=== PATIENT | female | born 1995 | race Caucasian/White ===

== ENCOUNTER 2016-08-03 12:01 | Emergency (ER) | payer OTHER ==
[2016-08-03 12:07] VITALS: TEMP 98.1
[2016-08-03] MEDS ORDERED: IPRATROPIUM/ALBUTEROL 3 ML DEYVIAL IH ONE ×2 (12:18→13:31)
[2016-08-03] MEDS ORDERED: predniSONE 20 MG TAB PO ONE (12:27)
--- NOTE | 2016-08-03 12:27 | EDPHY ---
H & P Stated Complaint: hx asthma/changing meds feels sob Time Seen by Provider: 08/03/16 12:19 HPI/ROS: CHIEF COMPLAINT: Dyspnea, cough HISTORY OF PRESENT ILLNESS: The patient is a 20-year-old female with a history of asthma comes to the emergency department complaining of cough and shortness of breath increasing over the last week. She states that she started a new inhaled steroid few weeks ago with her doctor in [place] and was told to try and use her albuterol sparingly. She has not used any today. She does not have a fever. She denies chest pain. No abdominal pain. REVIEW OF SYSTEMS: Constitutional: denies: chills, fever, recent illness, recent injury EENTM: denies: blurred vision, double vision, nose congestion Respiratory: See HPI Cardiac: denies: chest pain, irregular heart rate, lightheadedness, palpitations Gastrointestinal/Abdominal: denies: abdominal pain, diarrhea, nausea, vomiting, blood streaked stools Genitourinary: denies: dysuria, frequency, hematuria, pain Musculoskeletal: denies: joint pain, muscle pain Skin: denies: lesions, rash, jaundice, bruising Neurological: denies: headache, numbness, paresthesia, tingling, dizziness, weakness Hematologic/Lymphatic: denies: blood clots, easy bleeding, easy bruising Immunologic/allergic: denies: HIV/AIDS, transplant EXAM: GENERAL: Well-appearing, well-nourished and in no acute distress. HEAD: Atraumatic, normocephalic. EYES: Pupils equal round and reactive to light, extraocular movements intact, sclera anicteric, conjunctiva are normal. ENT: TMs normal, nares patent, oropharynx clear without exudates. Moist mucous membranes. NECK: Normal range of motion, supple without lymphadenopathy or JVD. LUNGS: Breath sounds clear to auscultation bilaterally and equal. No wheezes rales or rhonchi. HEART: Regular rate and rhythm without murmurs, rubs or gallops. ABDOMEN: Soft, nontender, normoactive bowel sounds. No guarding, no rebound. No masses appreciated. BACK: No CVA tenderness, no spinal tenderness, step-offs or deformities EXTREMITIES: Normal range of motion, no pitting or edema. No clubbing or cyanosis. NEUROLOGICAL: Cranial nerves II through XII grossly intact. Normal speech, normal gait. 5/5 strength, normal movement in all extremities, normal sensation PSYCH: Normal mood, normal affect. SKIN: Warm, dry, normal turgor, no visible rashes or lesions. Source: Patient Exam Limitations: No limitations - Personal History LMP (Females 10-55): 22-28 Days Ago Current Tetanus/Diphtheria Vaccine: Yes Tetanus Vaccine Date: < 10 years - Medical/Surgical History Hx Asthma: Yes Hx Chronic Respiratory Disease: No Hx Diabetes: No Hx Cardiac Disease: No Hx Renal Disease: No Hx Cirrhosis: No Hx Alcoholism: No Hx HIV/AIDS: No Hx Splenectomy or Spleen Trauma: No Other PMH: HERNIA REPAIR, IBS, UPPER GI PROBLEMS, ASTHMA, ANXIETY, ADHD - Social History Smoking Status: Never smoked Alcohol Use: Sober Drug Use: None Constitutional: Initial Vital Signs Temperature (C) 36.7 C 08/03/16 12:04 Heart Rate 84 08/03/16 12:04 Respiratory Rate 20 08/03/16 12:04 Blood Pressure 139/100 H 08/03/16 12:04 O2 Sat (%) 95 08/03/16 12:04 O2 Delivery Mode Room Air O2 (L/minute) 2 Allergies/Adverse Reactions: No Known Allergies Allergy (Verified 08/03/16 12:03) Home Medications: Medication Instructions Recorded Desog-E.estradiol/E.estradiol 1 each PO DAILY 03/13/14 [Azurette 28 Day Tablet] Dextroamphetamine/Amphetamine 15 mg PO DAILY 03/13/14 [ADDERALL 15 MG TABLET] Albuterol 08/03/16 Albuterol [Proventil Inhaler] 1 - 2 puffs IH Q4H #1 mdi 08/03/16 Breo Ellipta 100-25 Mcg INH 08/03/16 Zoloft 100mg (*) 08/03/16 predniSONE 60 mg PO DAILY #15 tab 08/03/16 Medical Decision Making - Diagnostics Imaging: Imaging Impressions Chest X-Ray 08/03/16 12:19 Impression: No definite pneumonia. X-ray: chest x-ray was obtained. I viewed the images myself on the PACS system. My interpretation of the images is: negative for acute disease . The radiologist interpretation is pending. ED Course/Re-evaluation: 1:50 p.m. the patient is feeling much better after a DuoNeb. I will treat her with a course of steroids. Her x-ray is reassuring. She is happy with this plan and declines further workup or testing at this time. Differential Diagnosis: Partial list of the Differential diagnosis considered include but were not limited to; bronchitis, asthma exacerbation and although unlikely based on the history and physical exam, I also considered pneumonia, pneumothorax, PE, acute coronary disease. I discussed these differential diagnoses and the plan with the patient as well as the usual and expected course. The patient understands that the diagnosis is provisional and that in medicine we are not always correct and that further workup is often warranted. Usual and customary warnings were given. All of the patient's questions were answered. The patient was instructed to return to the emergency department should the symptoms at all worsen or return, otherwise to followup with the physician as we discussed. - Data Points Medications Given: Discontinued Medications Albuterol/Ipratropium (Duoneb) 3 ml IH EDNOW ONE Stop: 08/03/16 12:19 Last Admin: 08/03/16 12:22 Dose: 3 ml Albuterol/Ipratropium (Duoneb) 3 ml IH EDNOW ONE Stop: 08/03/16 13:32 Last Admin: 08/03/16 13:32 Dose: 3 ml Prednisone (Prednisone) 60 mg PO EDNOW ONE Stop: 08/03/16 12:28 Last Admin: 08/03/16 13:00 Dose: 60 mg Departure - Departure Disposition: Home, Routine, Self-Care Clinical Impression: Exacerbation of asthma Condition: Fair Instructions: Asthma (ED) Referrals: KACI CAMARGO [Primary Care Provider] - As per Instructions Stand Alone Forms: School Excuse, Work Excuse Prescriptions: Albuterol [Proventil Inhaler] 1 - 2 puffs IH Q4H #1 mdi predniSONE 60 mg PO DAILY #15 tab
[2016-08-03] MEDS ORDERED: IPRATROPIUM/ALBUTEROL 3 ML DEYVIAL ONE (13:29)
[2016-08-03] MEDS ORDERED: ONDANSETRON DISINTEGRATING 4 MG TAB ONE (14:04)
[2016-08-03 14:23] VITALS: BP 110/68; PULSE 103; RESP 18; O2SAT 100
== END 2016-08-03 14:22 | disposition home or self-care (01) ==
DX: J45.901 Unspecified asthma with (acute) exacerbation (principal)

== ENCOUNTER 2016-09-01 21:35 | Inpatient (IN) | payer OTHER ==
[2016-09-01] MEDS ORDERED: IPRATROPIUM/ALBUTEROL 3 ML DEYVIAL ONE (21:46)
--- NOTE | 2016-09-01 21:54 | EDPHY ---
H & P Stated Complaint: ASTHMA COUGH ATTACKS, GREEN PUSS LIKE STUFF HPI/ROS: HPI CHIEF COMPLAINT: Cough, shortness of breath, asthma HISTORY OF PRESENT ILLNESS: This patient very pleasant 20-year-old female significant past medical history for asthma, IBS, presents to the emergency room with shortness of breath, wheezing and coughing. Patient reports to me she has had progressively worsening coughing with productive sputum sometimes green, yellow, with blood streaks at times, for 1.5 months. 2 days ago she did go to [facility] and was seen and evaluated she was started on a Z -Jus. She states over the past 48 hours her cough has gotten worse. She does tell me earlier in the month she did see her primary care doctor who manages her asthma and was given a new inhaler. She tells me the past 48 hours she has been using her home nebulizer every 4 hours and albuterol inhaler very frequently. She denies chest pain. She does report pleuritic pain when she takes deep breath in. Denies history of PE or cardiac disease. Does report that she does take oral control. Past Medical History: IBS, asthma Past Surgical History: No recent surgical history Social History: [employer] student, denies drugs, alcohol, daily tobacco use Family History: Noncontributory ROS REVIEW OF SYSTEMS: A comprehensive 10 point review of systems is otherwise negative aside from elements mentioned in the history of present illness. Exam Constitutional triage nursing summary reviewed, vital signs reviewed, awake/ alert. Noted to be tachycardic. Eyes normal conjunctivae and sclera, EOMI, PERRLA. HENT normal inspection, atraumatic, moist mucus membranes, no epistaxis, neck supple/ no meningismus, no raccoon eyes. Respiratory clear to auscultation bilaterally, normal breath sounds, no respiratory distress, no wheezing. Cardiovascular tachycardia, regular rhythm, no murmur, no edema, distal pulses normal. Gastrointestinal soft, non-tender, no rebound, no guarding, normal bowel sounds, no distension, no pulsatile mass. Genitourinary no CVA tenderness. Musculoskeletal no midline vertebral tenderness, full range of motion, no calf swelling, no tenderness of extremities, no meningismus, good pulses, neurovascularly intact. Skin pink, warm, & dry, no rash, skin atraumatic. Neurologic awake, alert and oriented x 3, AAOx3, moves all 4 extremities equally, motor intact, sensory intact, CN II-XII intact, normal cerebellar, normal vision, normal speech. Psychiatric normal mood/affect. Heme/Lymph/Immune no lymphadenopathy. Differential Diagnosis: Includes but is not limited to in a particular order, acute asthma attack, bronchospasm, bronchitis, pneumonia, viral pneumonia, bacterial pneumonia, pulmonary embolism Medical Decision Making: Plan for this patient IV establishment, DuoNeb breathing treatment, IV fluid bolus, IV Solu-Medrol, two view chest x-ray, blood work including D-dimer. EKG. Re-evaluation. Re-evaluation: 2320: Re-evaluation at this time this patient does feel much better after DuoNeb breathing treatment. Receiving IV fluids at this time received IV Solu- Medrol 125 mg. Chest x-ray reviewed shows no acute infiltrate. It is noted the patient had positive D-dimer and tachycardia takes oral control. Due to positive D-dimer tachycardia recommend CT angiogram to rule out pulmonary embolism. CT scan of the angiogram chest The results of the study are negative for acute pulmonary embolism no pneumothorax no pneumonia unremarkable CT angiogram chest. The study was read by Dr. Carrasco I viewed the images myself on the PACS system. EKG interpretation by me on record in [employer] system. Impression time of EKG 06/20/1934, sinus tachycardia rate of 112 no acute ischemic changes. 1215AM: Re-evaluation at this time after multiple DuoNeb breathing treatments patient still has persistent cough. Tells me that the main area of concern is tightness in her throat and throat pain. Did review her CT angiogram shows no pulmonary embolism also reviewed soft tissue neck x-ray that is negative for foreign body or prevertebral space thickening. However due to the ongoing cough with no significant improvement in the emergency room low-grade fever, tachycardia, proceed with CT scan IV contrast of the neck soft tissue to make sure there is not a retropharyngeal abscess or epiglottitis. Will pull lactic and blood cultures. 0133AM: Patient CT soft tissue neck is been reviewed there does show bilateral apical pulmonary infiltrates. This was not seen on the CT angiogram chest. Due to this with fever, white count and infiltrates patient be admitted to the hospital for bilateral apical pneumonia. IV Rocephin IV azithromycin as been ordered. Blood cultures ordered. Patient hemodynamically stable patient be admitted to Dr. Reeves Source: Patient - Personal History LMP (Females 10-55): 22-28 Days Ago Current Tetanus/Diphtheria Vaccine: Yes Current Tetanus Diphtheria and Acellular Pertussis (TDAP): Yes Tetanus Vaccine Date: < 10 years - Medical/Surgical History Hx Asthma: Yes Hx Chronic Respiratory Disease: No Hx Diabetes: No Hx Cardiac Disease: No Hx Renal Disease: No Hx Cirrhosis: No Hx Alcoholism: No Hx HIV/AIDS: No Hx Splenectomy or Spleen Trauma: No Other PMH: HERNIA REPAIR, IBS, UPPER GI PROBLEMS, ASTHMA, ANXIETY, ADHD - Social History Smoking Status: Never smoked Constitutional: Initial Vital Signs Temperature (C) 37.3 C 09/01/16 21:37 Heart Rate 118 H 09/01/16 21:37 Respiratory Rate 20 09/01/16 21:37 Blood Pressure 129/72 H 09/01/16 21:37 O2 Sat (%) 92 09/01/16 21:37 O2 Delivery Mode Nasal Cannula O2 (L/minute) 2 Allergies/Adverse Reactions: No Known Allergies Allergy (Verified 09/01/16 21:41) Home Medications: Medication Instructions Recorded Desog-E.estradiol/E.estradiol 1 each PO DAILY 03/13/14 [Azurette 28 Day Tablet] Dextroamphetamine/Amphetamine 15 mg PO DAILY 03/13/14 [ADDERALL 15 MG TABLET] Albuterol 08/03/16 Albuterol [Proventil Inhaler] 1 - 2 puffs IH Q4H #1 mdi 08/03/16 Breo Ellipta 100-25 Mcg INH 08/03/16 Zoloft 100mg (*) 08/03/16 Montelukast Sodium [Singulair 10 10 mg PO DAILY@1800 09/01/16 mg (*)] Medical Decision Making - Diagnostics Imaging Results: Imaging Impressions Chest X-Ray 09/01/16 22:09 Impression: Nothing acute. Chest/Thorax CTA 09/01/16 22:53 Impression: 1. No pulmonary embolism. 2. Clear lungs. Findings and recommendations discussed with Charles Morel MD at 2316 hour, . Final report concurs with initial preliminary interpretation. Soft Tissue Neck X-Ray 09/01/16 23:33 Impression: No radiopaque soft tissue foreign body or retropharyngeal process. - Data Points Laboratory Results: Laboratory Results 09/01/16 21:55 09/01/16 21:55 09/02/16 09/02/16 09/01/16 01:15 00:30 21:55 WBC RBC Hgb Hct MCV MCH MCHC RDW Plt Count MPV Neut % (Auto) Lymph % (Auto) [place] % (Auto) Eos % (Auto) Baso % (Auto) Nucleat RBC Rel Count Absolute Neuts (auto) Absolute Lymphs (auto) Absolute Monos (auto) Absolute Eos (auto) Absolute Basos (auto) Absolute Nucleated RBC Immature Gran % Immature Gran # D-Dimer VBG Lactic Acid 2.0 mmol/L mmol/L (0.7-2.1) Sodium Potassium Chloride Carbon Dioxide Anion Gap BUN Creatinine Estimated GFR Glucose Calcium Troponin I NT-Pro-B Natriuret Pep Beta HCG, Qual B. pertussis IgG Ab Pending B. pertussis IgA Ab Pending Influenza Typ A,B (DFA) Pending 09/01/16 09/01/16 09/01/16 21:55 21:55 21:55 WBC RBC Hgb Hct MCV MCH MCHC RDW Plt Count MPV Neut % (Auto) Lymph % (Auto) [place] % (Auto) Eos % (Auto) Baso % (Auto) Nucleat RBC Rel Count Absolute Neuts (auto) Absolute Lymphs (auto) Absolute Monos (auto) Absolute Eos (auto) Absolute Basos (auto) Absolute Nucleated RBC Immature Gran % Immature Gran # D-Dimer 0.79 ug/mLFEU H ug/mLFEU (0.00-0.50) VBG Lactic Acid Sodium 138 mEq/L mEq/L (134-144) Potassium 3.6 mEq/L mEq/L (3.5-5.2) Chloride 103 mEq/L mEq/L (97-110) Carbon Dioxide 20 mEq/l L mEq/l (22-31) Anion Gap 15 mEq/L mEq/L (8-16) BUN 4 mg/dL L mg/dL (7-23) Creatinine 0.6 mg/dL mg/dL (0.6-1.0) Estimated GFR > 60 Glucose 103 mg/dL H mg/dL (70-100) Calcium 9.0 mg/dL mg/dL (8.5-10.4) Troponin I < 0.012 ng/mL ng/mL (0-0.034) NT-Pro-B Natriuret Pep 342 pg/mL H pg/mL (0-125) Beta HCG, Qual NEGATIVE B. pertussis IgG Ab B. pertussis IgA Ab Influenza Typ A,B (DFA) 09/01/16 21:55 WBC 17.60 10^3/uL H 10^3/uL (3.80-9.50) RBC 3.79 10^6/uL L 10^6/uL (4.18-5.33) Hgb 12.1 g/dL L g/dL (12.6-16.3) Hct 35.5 % L % (38.0-47.0) MCV 93.7 fL fL (81.5-99.8) MCH 31.9 pg pg (27.9-34.1) MCHC 34.1 g/dL g/dL (32.4-36.7) RDW 14.3 % % (11.5-15.2) Plt Count 278 10^3/uL 10^3/uL (150-400) MPV 9.2 fL fL (8.7-11.7) Neut % (Auto) 76.1 % H % (39.3-74.2) Lymph % (Auto) 15.3 % % (15.0-45.0) [place] % (Auto) 6.9 % % (4.5-13.0) Eos % (Auto) 0.9 % % (0.6-7.6) Baso % (Auto) 0.3 % % (0.3-1.7) Nucleat RBC Rel Count 0.0 % % (0.0-0.2) Absolute Neuts (auto) 13.40 10^3/uL H 10^3/uL (1.70-6.50) Absolute Lymphs (auto) 2.69 10^3/uL 10^3/uL (1.00-3.00) Absolute Monos (auto) 1.21 10^3/uL H 10^3/uL (0.30-0.80) Absolute Eos (auto) 0.16 10^3/uL 10^3/uL (0.03-0.40) Absolute Basos (auto) 0.05 10^3/uL 10^3/uL (0.02-0.10) Absolute Nucleated RBC 0.00 10^3/uL 10^3/uL (0-0.01) Immature Gran % 0.5 % % (0.0-1.1) Immature Gran # 0.09 10^3/uL 10^3/uL (0.00-0.10) D-Dimer VBG Lactic Acid Sodium Potassium Chloride Carbon Dioxide Anion Gap BUN Creatinine Estimated GFR Glucose Calcium Troponin I NT-Pro-B Natriuret Pep Beta HCG, Qual B. pertussis IgG Ab B. pertussis IgA Ab Influenza Typ A,B (DFA) Medications Given: Discontinued Medications Al Hydroxide/Mg Hydroxide (Maalox Susp) 30 ml PO ONCE ONE Stop: 09/01/16 23:34 Last Admin: 09/01/16 23:40 Dose: 30 ml Albuterol/Ipratropium (Duoneb) 3 ml IH EDNOW ONE Stop: 09/01/16 22:00 Last Admin: 09/01/16 22:10 Dose: 3 ml Albuterol/Ipratropium (Duoneb) 3 ml IH EDNOW ONE Stop: 09/01/16 22:10 Last Admin: 09/01/16 22:39 Dose: 3 ml Hyoscyamine Sulfate (Levsin, Hyomax-Sl) 0.25 mg PO ONCE ONE Stop: 09/01/16 23:34 Last Admin: 09/01/16 23:40 Dose: 0.25 mg Sodium Chloride (Ns) 1,000 mls @ 0 mls/hr IV ONCE ONE PRN Reason: Wide Open Stop: 09/01/16 22:10 Last Admin: 09/01/16 22:10 Dose: 1,000 mls Lidocaine (Lidocaine 2% Viscous) 15 ml PO ONCE ONE Stop: 09/01/16 23:34 Last Admin: 09/01/16 23:40 Dose: 15 ml Methylprednisolone Sodium Succinate (Solu-Medrol) 125 mg IVP EDNOW ONE Stop: 09/01/16 22:10 Last Admin: 09/01/16 22:10 Dose: 125 mg Oxycodone/Acetaminophen (Percocet 5/325) 1 tab PO EDNOW ONE Stop: 09/01/16 22:11 Last Admin: 09/01/16 22:22 Dose: 1 tab Departure - Departure Disposition: [facility] Clinical Impression: Pneumonia Qualifiers: Pneumonia type: due to unspecified organism Laterality: bilateral Lung location : upper lobe of lung Qualified Code(s): J18.9 - Pneumonia, unspecified organism Condition: Fair Referrals: NOT,SURE [Other] - As per Instructions
[2016-09-01] MEDS ORDERED: IPRATROPIUM/ALBUTEROL 3 ML DEYVIAL IH ONE ×2 (21:59→22:09)
[2016-09-01] MEDS ORDERED: NS 1,000 ML IV ONE (22:09)
[2016-09-01] MEDS ORDERED: methylPREDNISolone SOD SUCC 125 MG/2 ML VIAL IVP ONE (22:09)
[2016-09-01] MEDS ORDERED: OXYCODONE/APAP 5/325 TAB PO ONE (22:10)
[2016-09-01] MEDS ORDERED: ONDANSETRON 4 MG/2 ML VIAL ONE (22:15)
[2016-09-01 22:19] LABS: % IMMATURE GRANULYOCYTES 0.5 % (0.0-1.1); ABSOLUTE IMMATURE GRANULOCYTES 0.09 10^3/uL (0.00-0.10); ADD DIFF? NO; ADD MORPH? NO; ADD SCAN? NO; ATYPICAL LYMPHOCYTE FLAG 0 (0-99); FRAGMENT RBC FLAG 0 (0-99); HEMATOCRIT 35.5 % (38.0-47.0); HEMOGLOBIN 12.1 g/dL (12.6-16.3); LEFT SHIFT FLG 50 (0-99); LIPEMIA HEMOLYSIS FLAG 90 (0-99); MEAN CELL HEMOGLOBIN 31.9 pg (27.9-34.1); MEAN CELL HEMOGLOBIN CONCENTR. 34.1 g/dL (32.4-36.7); MEAN CELL VOLUME 93.7 fL (81.5-99.8); MEAN PLATELET VOLUME 9.2 fL (8.7-11.7); PLATELET CLUMPS FLAG 10 (0-99); PLATELET COUNT 278 10^3/uL (150-400); RED BLOOD CELL COUNT 3.79 10^6/uL (4.18-5.33); RED CELL DISTRIBUTION WIDTH 14.3 % (11.5-15.2)
[2016-09-01 22:25] LABS: ANION GAP 15 mEq/L (8-16); CARBON DIOXIDE 20 mEq/l (22-31); CHLORIDE 103 mEq/L (97-110); CREATININE 0.6 mg/dL (0.6-1.0); GLOMERULAR FILTRATION RATE > 60; GLUCOSE 103 mg/dL (70-100); POTASSIUM 3.6 mEq/L (3.5-5.2); SODIUM 138 mEq/L (134-144)
[2016-09-01 22:36] LABS: TROPONIN I < 0.012 ng/mL (0-0.034)
--- NOTE | 2016-09-01 22:37 | CPEKG ---
Heart Rate: 112 RR Interval: 536 P-R Interval: 176 QRSD Interval: 92 QT Interval: 336 QTC Interval: 459 P [place]: 62 QRS [place]: 47 T Wave [place]: 42 EKG Severity - OTHERWISE NORMAL ECG - EKG Impression: SINUS TACHYCARDIA Electronically Signed By: Charles Morel 02-Sep-2016 06:41:08
[2016-09-01] MEDS ORDERED: IOPAMIDOL (ISOVUE 370) 100 ML BTL IV ONE (22:58)
[2016-09-01] MEDS ORDERED: MAG HYDROX/AL HYDROX/SIMETH 30 ML UDCUP PO ONE (23:33)
[2016-09-01] MEDS ORDERED: HYOSCYAMINE SULFATE 0.125 MG TAB PO ONE (23:33)
[2016-09-01] MEDS ORDERED: LIDOCAINE 2% VISCOUS 15 ML UDCUP PO ONE (23:33)
[2016-09-02] MEDS ORDERED: AZITHROMYCIN IV 500 MG in D5W 250 ML IV ONE (00:37)
[2016-09-02] MEDS ORDERED: IOPAMIDOL (ISOVUE-300) 100 ML BTL IV ONE (00:41)
[2016-09-02] MEDS ORDERED: ALBUTEROL 3 ML DEYVIAL IH PRN (05:44)
--- NOTE | 2016-09-02 05:48 | PDGENHP ---
History and Physical - Chief Complaint cough, shortness of breath - History of Present Illness Patient is a 20 year old female with a history of moderate intermittent asthma, IBS presents to the ED with complaint of shortness of breath and persistent cough. Patient states that about 4-6 weeks ago she developed what she that was a viral URI, with chest congestion, cough and upper airway congestion, which then triggered a mild asthma exacerbation. She was evaluated in the [facility] ED in early July for this, was given a course of prednisone and an albuterol prescription. She reports she initially felt better, but her cough has persisted since that time. And then about 2-4 days ago, her respiratory symptoms again acutely worsened. She developed subjective fever and chills, cough became more productive and became associated with increased wheezing and shortness of breath and sore throat. She went to the [facility] clinic on campus and was prescribed a Z-pack two days ago. Her symptoms continued to worsen, so she returned to the ED for further evaluation. Patient denies any recent travel outside the country in the past 6 months. Also denies any obvious sick contacts. She does report significant night sweats, since her symptoms started a month ago. Denies any abdominal pain, nausea, vomiting or diarrhea. She is on OCP. On presentation to the ED, patient had a low grade temperature, was tachycardic and normotensive, saturating well on room air. Labs revealed a significant leukocytosis, lactic acid 2, normal bmp. CXR was unrevealing and d-dimer was positive, so CT chest and neck were obtained. CT was negative for pulmonary embolism, did show bilateral apical consolidations concerning for atypical pneumonia. She was cultured and initiated on antibiotics. History Information - Allergies/Home Medication List Allergies/Adverse Reactions: No Known Allergies Allergy (Verified 09/01/16 21:41) Home Medications: Desog-E.estradiol/E.estradiol [Azurette 28 Day Tablet] 1 each PO DAILY 03/13/14 [Last Taken Unknown] Dextroamphetamine/Amphetamine [ADDERALL 15 MG TABLET] 15 mg PO DAILY 03/13/14 [ Last Taken Unknown] Albuterol 08/03/16 [Last Taken Unknown] Breo Ellipta 100-25 Mcg INH 08/03/16 [Last Taken Unknown] Zoloft 100mg (*) 08/03/16 [Last Taken Unknown] Montelukast Sodium [Singulair 10 mg (*)] 10 mg PO DAILY@1800 09/01/16 [Last Taken Unknown] I have personally reviewed and updated: family history, medical history, social history, surgical history - Past Medical History Additional medical history: Asthma: moderate, intermittent; never hospitalized or intubated. IBS - Surgical History Additional surgical history: inguinal hernia repair - Social History Smoking Status: Never smoked Alcohol Use: Occasionally Drug Use: None Additional social history: Patient is a senior at , studying physiology. From [place]. Review of Systems ROS: 10pt was reviewed & negative except for what was stated in HPI & below Physical Exam Temp Pulse Resp BP Pulse Ox 36.6 C 95 18 127/84 H 97 09/02/16 02:51 09/02/16 02:51 09/02/16 02:51 09/02/16 02:51 09/02/16 02:51 O2 (L/minute) 2 Constitutional: no apparent distress, appears nourished, not in pain Eyes: PERRL, anicteric sclera, EOMI Ears, Nose, Mouth, Throat: moist mucous membranes, hearing normal, ears appear normal, no oral mucosal ulcers Cardiovascular: regular rate and rhythym, no murmur, rub, or gallop, pulses symmetric bilaterally, tachycardia, No JVD, No edema Peripheral Pulses: 2+: dorsalis-pedis (R), dorsalis-pedis (L) Respiratory: no respiratory distress, no rales or rhonchi, clear to auscultation , No expiratory wheeze Gastrointestinal: normoactive bowel sounds, soft, non-tender abdomen, no palpable masses Genitourinary: no bladder fullness, no bladder tenderness Skin: warm, normal color, no rashes or abrasions, no fluctuance, no induration, No mottled Musculoskeletal: full muscle strength, no muscle tenderness, normal joint ROM, no joint effusions Neurologic: AAOx3, sensation intact bilaterally, CN II-XII Intact, No weakness, No numbness Psychiatric: interacting appropriately, not anxious, not encephalopathic, thought process linear Lab Data & Imaging Review 09/01/16 21:55 09/01/16 21:55 WBC 17.60 10^3/uL (3.80-9.50) H 09/01/16 21:55 RBC 3.79 10^6/uL (4.18-5.33) L 09/01/16 21:55 Hgb 12.1 g/dL (12.6-16.3) L 09/01/16 21:55 Hct 35.5 % (38.0-47.0) L 09/01/16 21:55 MCV 93.7 fL (81.5-99.8) 09/01/16 21:55 MCH 31.9 pg (27.9-34.1) 09/01/16 21:55 MCHC 34.1 g/dL (32.4-36.7) 09/01/16 21:55 RDW 14.3 % (11.5-15.2) 09/01/16 21:55 Plt Count 278 10^3/uL (150-400) 09/01/16 21:55 MPV 9.2 fL (8.7-11.7) 09/01/16 21:55 Neut % (Auto) 76.1 % (39.3-74.2) H 09/01/16 21:55 Lymph % (Auto) 15.3 % (15.0-45.0) 09/01/16 21:55 [place] % (Auto) 6.9 % (4.5-13.0) 09/01/16 21:55 Eos % (Auto) 0.9 % (0.6-7.6) 09/01/16 21:55 Baso % (Auto) 0.3 % (0.3-1.7) 09/01/16 21:55 Nucleat RBC Rel Count 0.0 % (0.0-0.2) 09/01/16 21:55 Absolute Neuts (auto) 13.40 10^3/uL (1.70-6.50) H 09/01/16 21:55 Absolute Lymphs (auto) 2.69 10^3/uL (1.00-3.00) 09/01/16 21:55 Absolute Monos (auto) 1.21 10^3/uL (0.30-0.80) H 09/01/16 21:55 Absolute Eos (auto) 0.16 10^3/uL (0.03-0.40) 09/01/16 21:55 Absolute Basos (auto) 0.05 10^3/uL (0.02-0.10) 09/01/16 21:55 Absolute Nucleated RBC 0.00 10^3/uL (0-0.01) 09/01/16 21:55 Immature Gran % 0.5 % (0.0-1.1) 09/01/16 21:55 Immature Gran # 0.09 10^3/uL (0.00-0.10) 09/01/16 21:55 D-Dimer 0.79 ug/mLFEU (0.00-0.50) H 09/01/16 21:55 VBG Lactic Acid 2.0 mmol/L (0.7-2.1) 09/02/16 00:30 Sodium 138 mEq/L (134-144) 09/01/16 21:55 Potassium 3.6 mEq/L (3.5-5.2) 09/01/16 21:55 Chloride 103 mEq/L (97-110) 09/01/16 21:55 Carbon Dioxide 20 mEq/l (22-31) L 09/01/16 21:55 Anion Gap 15 mEq/L (8-16) 09/01/16 21:55 BUN 4 mg/dL (7-23) L 09/01/16 21:55 Creatinine 0.6 mg/dL (0.6-1.0) 09/01/16 21:55 Estimated GFR > 60 09/01/16 21:55 Glucose 103 mg/dL (70-100) H 09/01/16 21:55 Calcium 9.0 mg/dL (8.5-10.4) 09/01/16 21:55 Troponin I < 0.012 ng/mL (0-0.034) 09/01/16 21:55 NT-Pro-B Natriuret Pep 342 pg/mL (0-125) H 09/01/16 21:55 Beta HCG, Qual NEGATIVE 09/01/16 21:55 Influenza Typ A,B (DFA) NEGATIVE FOR FLU (NEGATIVE) 09/02/16 01:15 Visualized and Interpreted Chest x-ray results: Yes Chest X-Ray results: no infiltrate Visualized and Interpreted imaging results: Yes Interpretation: CT neck/chest: no pulmonary emboli, bilateral apical infiltrates ; no soft tissue neck pathology Visualized and Interpreted EKG results: Yes EKG additional interpertation: sinus tachycardia Assessment & Plan Assessment: Patient is a 20 year old female with asthma who presents to the ED with complaint of 4-5 weeks of persistent cough/URI type symptoms that acutely worsened about 4 days ago. ED work up reveals bilateral apical infiltrates appear consistent with an atypical pneumonia. Plan: # sepsis secondary to presumed atypical pneumonia On presentation patient is tachycardic, tachypneic, with leukocytosis. UA and initial CXR were unremarkable, but CT of the chest has revealed bilateral apical infiltrates that appear consistent with pneumonia. Apical location is unusual, as is her prolonged course of symptoms with night sweats, so will also check AFBs. She was initiated on azithromycin 2 days prior to presentation, but symptoms have continued to worsen. - f/u blood cultures, pertussis ab - check sputum cultures, viral respiratory panel - cont ceftriaxone/azithromycin daily - NS @ 100 cc/hr - supplemental O2 prn # acute respiratory failure due to acute asthma exacerbation Patient presented with mild diffuse wheezing, in addition to cough. Wheezing improved with IV steroids, nebs. Will cont po prednisone, alb neb prn. - prednisone 40 mg daily - albuterol prn # IBS Stable, no complaints at this time. # dispo: admit to observation # gen: regular diet DVT ppx: low risk Full code
[2016-09-02] MEDS ORDERED: KETOROLAC 30 MG/1 ML SDV IVP PRN (05:52)
[2016-09-02] MEDS ORDERED: ONDANSETRON DISINTEGRATING 4 MG TAB PO PRN (06:14)
[2016-09-02] MEDS ORDERED: ACETAMINOPHEN 325 MG TAB PO PRN (06:14)
[2016-09-02] MEDS ORDERED: ONDANSETRON 4 MG/2 ML VIAL IVP PRN (06:14)
[2016-09-02] MEDS ORDERED: NS 1,000 ML IV SCH (06:15)
[2016-09-02] MEDS: BENZONATATE 100 MG CAP PO PRN ×3 (06:20→19:04)
[2016-09-02 07:31] LABS: % IMMATURE GRANULYOCYTES 0.5 % (0.0-1.1); ABSOLUTE IMMATURE GRANULOCYTES 0.08 10^3/uL (0.00-0.10); ADD DIFF? NO; ADD MORPH? NO; ADD SCAN? NO; ATYPICAL LYMPHOCYTE FLAG 0 (0-99); FRAGMENT RBC FLAG 0 (0-99); HEMATOCRIT 35.5 % (38.0-47.0); LEFT SHIFT FLG 30 (0-99); LIPEMIA HEMOLYSIS FLAG 90 (0-99); MEAN CELL HEMOGLOBIN 31.7 pg (27.9-34.1); MEAN CELL HEMOGLOBIN CONCENTR. 33.8 g/dL (32.4-36.7); MEAN CELL VOLUME 93.7 fL (81.5-99.8); MEAN PLATELET VOLUME 9.1 fL (8.7-11.7); PLATELET CLUMPS FLAG 0 (0-99); PLATELET COUNT 248 10^3/uL (150-400); RED BLOOD CELL COUNT 3.79 10^6/uL (4.18-5.33); RED CELL DISTRIBUTION WIDTH 14.1 % (11.5-15.2)
[2016-09-02 07:49] LABS: ANION GAP 9 mEq/L (8-16); CALCIUM 9.1 mg/dL (8.5-10.4); CARBON DIOXIDE 22 mEq/l (22-31); CHLORIDE 103 mEq/L (97-110); CREATININE 0.6 mg/dL (0.6-1.0); GLOMERULAR FILTRATION RATE > 60; GLUCOSE 166 mg/dL (70-100); POTASSIUM 4.8 mEq/L (3.5-5.2); SODIUM 134 mEq/L (134-144)
[2016-09-02] MEDS: predniSONE 20 MG TAB PO SCH (08:35)
[2016-09-02] MEDS: AZITHROMYCIN IV 500 MG in D5W 250 ML IV SCH (09:45)
[2016-09-02] MEDS ORDERED: ALPRAZolam 1 MG TAB PO PRN (09:47)
[2016-09-02] MEDS: SERTRALINE HCL 50 MG TAB PO SCH (10:20)
[2016-09-02] MEDS: guaiFENesin/CODEINE PHOS 10 ML UDCUP PO PRN ×3 (10:20→22:33)
[2016-09-02] MEDS: ADDERALL 20 MG TAB PO SCH ×2 (11:19→14:52)
--- NOTE | 2016-09-02 15:17 | HOSPPROG ---
Hospitalist Progress Note Assessment/Plan: * apical pneumonia * Atypical location but patient has no risk factors for tuberculosis * Discussed with Infectious Disease. Will discontinue precautions * Will treat for community-acquired pneumonia * asthma exacerbation * Continue steroids and bronchodilators * IBS Subjective: Cough. Not much wheezing. Has been short of breath though Objective: Vital Signs Temp Pulse Resp BP Pulse Ox 36.7 C 95 18 119/85 H 95 09/02/16 11:10 09/02/16 11:10 09/02/16 11:10 09/02/16 11:10 09/02/16 11:10 Laboratory Results 09/02/16 07:18 09/02/16 07:18 09/01/16 09/02/16 09/03/16 05:59 05:59 05:59 Intake Total 1000 Balance 1000 - Physical Exam Constitutional: no apparent distress, appears nourished, not in pain Eyes: anicteric sclera, EOMI Ears, Nose, Mouth, Throat: moist mucous membranes, hearing normal, ears appear normal Cardiovascular: regular rate and rhythym, no murmur, rub, or gallop Respiratory: no respiratory distress, no rales or rhonchi, clear to auscultation , No expiratory wheeze Gastrointestinal: normoactive bowel sounds, soft, non-tender abdomen, no palpable masses Skin: warm Neurologic: AAOx3 Psychiatric: interacting appropriately, not anxious, not encephalopathic, thought process linear ICD10 Worksheet Patient Problems: Problems Problem Status Onset Pneumonia Acute
[2016-09-02] MEDS: MONTELUKAST SODIUM 10 MG TAB PO SCH (17:56)
[2016-09-02] MEDS: LORazepam 0.5 MG TAB PO PRN (19:53)
[2016-09-03] MEDS: BENZONATATE 100 MG CAP PO PRN ×2 (03:57→14:49)
[2016-09-03] MEDS: guaiFENesin/CODEINE PHOS 10 ML UDCUP PO PRN ×3 (04:34→21:49)
[2016-09-03] MEDS: SERTRALINE HCL 50 MG TAB PO SCH (08:28)
[2016-09-03] MEDS: predniSONE 20 MG TAB PO SCH (08:28)
[2016-09-03] MEDS: ADDERALL 20 MG TAB PO SCH ×3 (08:29→16:26)
[2016-09-03] MEDS: [UNRECOGNIZED DRUG - OTHER] IH SCH (08:59)
[2016-09-03] MEDS: FLUTICASONE IH SCH (08:59)
[2016-09-03] MEDS: AZITHROMYCIN IV 500 MG in D5W 250 ML IV SCH (09:43)
[2016-09-03 10:23] LABS: % IMMATURE GRANULYOCYTES 0.5 % (0.0-1.1); ABSOLUTE IMMATURE GRANULOCYTES 0.08 10^3/uL (0.00-0.10); ADD DIFF? NO; ADD MORPH? NO; ADD SCAN? NO; ATYPICAL LYMPHOCYTE FLAG 0 (0-99); FRAGMENT RBC FLAG 0 (0-99); HEMATOCRIT 36.8 % (38.0-47.0); HEMOGLOBIN 12.1 g/dL (12.6-16.3); LEFT SHIFT FLG 20 (0-99); LIPEMIA HEMOLYSIS FLAG 80 (0-99); MEAN CELL HEMOGLOBIN 31.3 pg (27.9-34.1); MEAN CELL HEMOGLOBIN CONCENTR. 32.9 g/dL (32.4-36.7); MEAN CELL VOLUME 95.3 fL (81.5-99.8); MEAN PLATELET VOLUME 9.4 fL (8.7-11.7); PLATELET CLUMPS FLAG 0 (0-99); PLATELET COUNT 262 10^3/uL (150-400); RED BLOOD CELL COUNT 3.86 10^6/uL (4.18-5.33); RED CELL DISTRIBUTION WIDTH 14.1 % (11.5-15.2)
[2016-09-03 10:37] LABS: ANION GAP 10 mEq/L (8-16); CALCIUM 9.1 mg/dL (8.5-10.4); CARBON DIOXIDE 23 mEq/l (22-31); CHLORIDE 105 mEq/L (97-110); CREATININE 0.7 mg/dL (0.6-1.0); GLOMERULAR FILTRATION RATE > 60; GLUCOSE 159 mg/dL (70-100); POTASSIUM 4.1 mEq/L (3.5-5.2); SODIUM 138 mEq/L (134-144)
--- NOTE | 2016-09-03 15:23 | HOSPPROG ---
Hospitalist Progress Note Assessment/Plan: * apical pneumonia * Atypical location but patient has no risk factors for tuberculosis * Discussed with Infectious Disease. Will discontinue precautions * Will treat for community-acquired pneumonia * If not much better by tomorrow we will get Infectious Disease to see * White blood cell count increased may be due to steroids * asthma exacerbation * Continue steroids and bronchodilators * IBS Subjective: Feels little bit better. Still coughing. No wheezing Objective: Vital Signs Temp Pulse Resp BP Pulse Ox 37.2 C 89 20 117/74 99 09/03/16 08:33 09/03/16 08:33 09/03/16 08:33 09/03/16 08:33 09/03/16 08:33 Microbiology 09/02/16 08:35 - Final Sputum, Expectorated 09/02/16 19:58 Respiratory Panel (PCR) - Final Nasal, Sinus - [place] Viral Transport No Organism Detected Laboratory Results 09/03/16 10:15 09/03/16 10:15 09/02/16 09/03/16 09/04/16 05:59 05:59 05:59 Intake Total 1000 1100 Output Total 2900 Balance 1000 -1800 - Physical Exam Constitutional: no apparent distress, appears nourished, not in pain Eyes: anicteric sclera, EOMI Ears, Nose, Mouth, Throat: moist mucous membranes, hearing normal Cardiovascular: regular rate and rhythym, no murmur, rub, or gallop, systolic murmur Respiratory: no respiratory distress, no rales or rhonchi, clear to auscultation Gastrointestinal: normoactive bowel sounds, soft, non-tender abdomen, no palpable masses Skin: warm Neurologic: AAOx3 Psychiatric: interacting appropriately, not anxious, not encephalopathic, thought process linear ICD10 Worksheet Patient Problems: Problems Problem Status Onset Pneumonia Acute
[2016-09-03] MEDS: MONTELUKAST SODIUM 10 MG TAB PO SCH (18:28)
[2016-09-03] MEDS: LORazepam 0.5 MG TAB PO PRN (21:49)
[2016-09-04] MEDS: guaiFENesin/CODEINE PHOS 10 ML UDCUP PO PRN (07:17)
[2016-09-04] MEDS: ADDERALL 20 MG TAB PO SCH ×3 (07:22→17:18)
[2016-09-04] MEDS: SERTRALINE HCL 50 MG TAB PO SCH (07:22)
[2016-09-04] MEDS: predniSONE 20 MG TAB PO SCH (07:22)
[2016-09-04] MEDS: FLUTICASONE IH SCH (09:39)
[2016-09-04] MEDS: [UNRECOGNIZED DRUG - OTHER] IH SCH (09:39)
[2016-09-04] MEDS: AZITHROMYCIN IV 500 MG in D5W 250 ML IV SCH (09:53)
[2016-09-04 10:22] LABS: % IMMATURE GRANULYOCYTES 0.6 % (0.0-1.1); ADD DIFF? NO; ADD MORPH? NO; ADD SCAN? NO; ATYPICAL LYMPHOCYTE FLAG 10 (0-99); FRAGMENT RBC FLAG 0 (0-99); HEMATOCRIT 40.2 % (38.0-47.0); HEMOGLOBIN 13.4 g/dL (12.6-16.3); LEFT SHIFT FLG 30 (0-99); LIPEMIA HEMOLYSIS FLAG 80 (0-99); MEAN CELL HEMOGLOBIN 31.5 pg (27.9-34.1); MEAN CELL HEMOGLOBIN CONCENTR. 33.3 g/dL (32.4-36.7); MEAN CELL VOLUME 94.4 fL (81.5-99.8); MEAN PLATELET VOLUME 9.3 fL (8.7-11.7); PLATELET CLUMPS FLAG 10 (0-99); PLATELET COUNT 304 10^3/uL (150-400); RED BLOOD CELL COUNT 4.26 10^6/uL (4.18-5.33)
[2016-09-04 10:58] LABS: ANION GAP 11 mEq/L (8-16); CALCIUM 9.2 mg/dL (8.5-10.4); CARBON DIOXIDE 22 mEq/l (22-31); CHLORIDE 103 mEq/L (97-110); CREATININE 0.6 mg/dL (0.6-1.0); GLOMERULAR FILTRATION RATE > 60; GLUCOSE 105 mg/dL (70-100); POTASSIUM 4.8 mEq/L (3.5-5.2); SODIUM 136 mEq/L (134-144)
[2016-09-04] MEDS: BENZONATATE 100 MG CAP PO PRN (12:51)
--- NOTE | 2016-09-04 14:57 | HOSPPROG ---
Hospitalist Progress Note Assessment/Plan: * apical pneumonia * Atypical location but patient has no risk factors for tuberculosis * his getting slowly better but continued leukocytosis * will get Infectious Disease to see case we are missing something and possibly for follow-up at when discharged * will probably keep her 1 more night * asthma exacerbation * Continue steroids and bronchodilators * IBS Subjective: still with coughing this morning. He is feeling little bit groggy Objective: Vital Signs Temp Pulse Resp BP Pulse Ox 36.8 C 59 L 20 120/86 H 93 09/04/16 08:00 09/04/16 08:00 09/04/16 08:00 09/04/16 08:00 09/04/16 08:00 Laboratory Results 09/04/16 10:15 09/04/16 10:15 09/03/16 09/04/16 09/05/16 05:59 05:59 05:59 Intake Total 240 Balance 240 - Physical Exam Constitutional: no apparent distress, appears nourished, not in pain Eyes: anicteric sclera, EOMI Ears, Nose, Mouth, Throat: moist mucous membranes, hearing normal, ears appear normal Cardiovascular: regular rate and rhythym Respiratory: no respiratory distress, no rales or rhonchi, clear to auscultation , No reduced air movement, No expiratory wheeze Gastrointestinal: normoactive bowel sounds, soft, non-tender abdomen, no palpable masses Skin: warm Neurologic: AAOx3 Psychiatric: interacting appropriately, not anxious, not encephalopathic, thought process linear ICD10 Worksheet Patient Problems: Problems Problem Status Onset Pneumonia Acute
[2016-09-04] MEDS: guaiFENesin 600 MG TAB.ER PO SCH ×2 (15:45→20:32)
[2016-09-04] MEDS: MONTELUKAST SODIUM 10 MG TAB PO SCH (17:21)
--- NOTE | 2016-09-04 18:10 | GCON ---
[f rep st] CONSULTATION INFECTIOUS DISEASES CONSULTATION. DATE OF CONSULTATION: 09/04/2016 REFERRING PHYSICIAN: Maris Graham MD REASON FOR CONSULTATION: Bilateral upper lobe pneumonitis. HISTORY OF PRESENT ILLNESS: The patient is a 20-year-old female, with a past medical history of asthma, whom I am asked to see in consultation for bilateral upper lobe pneumonitis. The patient describes having an exacerbation of her asthma approximately 6 weeks ago. This was treated with inhalers and a tapering course of prednisone. She did have some mild improvement, but did not feel like she had returned to her baseline. Beginning Monday last week, she had progressive cough with sputum production that was yellow-green in color. This was associated with subjective fever to around 100 degrees, with chills but no rigors. She did have associated sweats. There was associated sore throat and hoarse voice. She was seen at [facility] and prescribed azithromycin , which she took for 2 days, but did not feel like she experienced any improvement. Therefore, she presented to the emergency department for ongoing care. The patient does not note any ill contacts. She traveled back home to the [place] area over the last 6 weeks. No other travel. She has a pet rabbit at home, which is an indoor rabbit, which she does handle occasionally. She has had the rabbit for approximately 6 weeks. The rabbit has not been ill. No other noticeable environmentally exposures. She does not smoke marijuana. The patient was noted to have an elevated white blood cell count, and underwent CT scanning of the neck and chest. These images showed bilateral apical patchy infiltrates. No cavitation was noted. Respiratory virus PCR testing was performed on 2 separate occasions, both of which did not detect pathogens. Blood cultures have remained negative. The patient has received empiric treatment with ceftriaxone and azithromycin, as well as prednisone. She feels slightly improved, but does not feel like she has had significant changes in her clinical status. She does describe having a chest tightness, but no pleuritic pain. She has not experienced skin rash. No hematuria. No underlying HIV risk factors. Given the above findings, I am now asked to assist in her ongoing management. PAST MEDICAL HISTORY: Asthma as outlined above, irritable bowel syndrome. SURGICAL HISTORY: Bilateral herniorrhaphy. CURRENT MEDICATIONS: Azithromycin 500 mg IV daily, ceftriaxone 1 g IV daily, Xanax 1 mg daily as needed for anxiety, albuterol nebs, Adderall 20 mg p.o. three times daily, Tessalon Perles 200 mg p.o. three times daily as needed, Mucinex 600 mg p.o. twice daily, Breo inhaler once daily, oral contraceptives once daily, Singulair 10 mg p.o. daily, prednisone 40 mg p.o. daily, Zoloft 50 mg p.o. daily. ALLERGIES: No known drug allergies. SOCIAL HISTORY: The patient does not smoke. She drinks alcohol on the weekend. No inhaled marijuana use. Travel to [place] as above. Pet rabbit as above. FAMILY HISTORY: Noncontributory. REVIEW OF SYSTEMS: Patient does note that there are black spots, suggestive of mold, on the ceiling in her house. Outside that noted in HPI, remainder of 10- system review is unremarkable. PHYSICAL EXAMINATION: VITAL SIGNS: Temperature 37.1, heart rate 72, respiratory rate 18, blood pressure 123/80, oxygen saturation 94% on room air. GENERAL: Patient is well-nourished, well-developed, in no acute distress. She appears nontoxic. HEENT: There is no scleral icterus, conjunctival injection, or conjunctival petechiae. Oropharynx is clear without lesions. Dentition is in good repair. Mucous membranes are moist. There is no nasal discharge. There is no tenderness over the frontal, maxillary, or mastoid area. NECK: Supple without lymphadenopathy or palpable thyromegaly. CHEST: Clear to auscultation bilaterally without adventitious sounds. No wheezing is present. Respiratory effort is normal. There is periodic dry cough. CARDIOVASCULAR: Regular rate and rhythm without murmurs, gallops, or rubs. ABDOMEN: Soft, nontender, nondistended. There is no palpable organomegaly. Bowel sounds are present. MUSCULOSKELETAL: No cyanosis, clubbing, or edema. SKIN: No rashes present. No stigmata of endocarditis. The skin is warm and dry to touch. LYMPHATICS: No cervical or supraclavicular nodes. NEUROLOGIC: Patient is alert and interacts appropriately with examiner. Cranial nerves 2 through 12 are grossly intact. Sensation is grossly intact. Muscle tone and bulk are normal. LABORATORY DATA: White blood cell count 16.0, hematocrit 40.2, platelets 304; neutrophils 88%. Serum creatinine 0.6. Beta HCG is negative. Influenza by DFA is negative. Respiratory pathogen panel by PCR is negative x2. Mycoplasma antibodies are pending. Blood cultures x2 sets are negative. Sputum shows mixed oral janet. IMAGING: CT scan of the neck and chest reviewed with Radiology today; there are biapical patchy infiltrates without involvement of other lung moseley. IMPRESSION: Bilateral apical pneumonitis: Diagnostic considerations include infectious and non infectious etiologies. The overall presentation, including her hoarse voice, is most suggestive of a viral etiology, although no pathogens were detected by PCR. Mycoplasma remains a consideration, with antibody profile currently pending. She does have exposure to a rabbit, raising the issue of tularemia, although I suspect this will be of low likelihood, given the rabbit does not go outside and has not been ill. Typical pathogens of community-acquired pneumonia seems less likely based on radiographic findings. Non infectious considerations would include other entities, such as allergic bronchopulmonary aspergillosis, polyangiitis with granulomatosis, or less likely hypersensitivity pneumonitis. RECOMMENDATIONS: 1. Continue empiric ceftriaxone and azithromycin. 2. Follow up mycoplasma antibodies as available. 3. Check serum IgE level, hypersensitivity pneumonitis panel, and ANCA profile. 4. Check tularemia antibody. 5. Follow response to above clinical measures. She will require repeat CT scan over time to ensure resolution of infiltrates. If these fail to resolve, potentially could require further evaluation with bronchoscopy. 6. Check HIV antibody. Thank you for this consultation. We will continue to follow the patient with you. /[id number]/MODL MTDD
[2016-09-04 22:42] VITALS: TEMP 98.2
[2016-09-04] MEDS: LORazepam 0.5 MG TAB PO PRN (23:03)
[2016-09-05 05:14] LABS: % IMMATURE GRANULYOCYTES 2.1 % (0.0-1.1); ABSOLUTE IMMATURE GRANULOCYTES 0.26 10^3/uL (0.00-0.10); ADD DIFF? NO; ADD MORPH? NO; ADD SCAN? NO; ATYPICAL LYMPHOCYTE FLAG 30 (0-99); FRAGMENT RBC FLAG 0 (0-99); HEMATOCRIT 40.9 % (38.0-47.0); HEMOGLOBIN 13.6 g/dL (12.6-16.3); LEFT SHIFT FLG 20 (0-99); LIPEMIA HEMOLYSIS FLAG 80 (0-99); MEAN CELL HEMOGLOBIN 31.2 pg (27.9-34.1); MEAN CELL HEMOGLOBIN CONCENTR. 33.3 g/dL (32.4-36.7); MEAN CELL VOLUME 93.8 fL (81.5-99.8); MEAN PLATELET VOLUME 9.2 fL (8.7-11.7); PLATELET CLUMPS FLAG 30 (0-99); PLATELET COUNT 331 10^3/uL (150-400); RED BLOOD CELL COUNT 4.36 10^6/uL (4.18-5.33); RED CELL DISTRIBUTION WIDTH 13.4 % (11.5-15.2)
[2016-09-05 05:28] LABS: ANION GAP 11 mEq/L (8-16); CALCIUM 9.3 mg/dL (8.5-10.4); CARBON DIOXIDE 23 mEq/l (22-31); CHLORIDE 102 mEq/L (97-110); CREATININE 0.7 mg/dL (0.6-1.0); GLOMERULAR FILTRATION RATE > 60; GLUCOSE 78 mg/dL (70-100); POTASSIUM 4.2 mEq/L (3.5-5.2); SODIUM 136 mEq/L (134-144)
[2016-09-05 07:20] VITALS: BP 118/85; PULSE 74; RESP 18; O2SAT 96
[2016-09-05] MEDS: FLUTICASONE IH SCH (09:48)
[2016-09-05] MEDS: [UNRECOGNIZED DRUG - OTHER] IH SCH (09:48)
[2016-09-05] MEDS: guaiFENesin 600 MG TAB.ER PO SCH (09:52)
[2016-09-05] MEDS: predniSONE 20 MG TAB PO SCH (09:52)
[2016-09-05] MEDS: SERTRALINE HCL 50 MG TAB PO SCH (09:52)
[2016-09-05] MEDS: ADDERALL 20 MG TAB PO SCH ×2 (10:35→11:28)
[2016-09-05] MEDS: AZITHROMYCIN IV 500 MG in D5W 250 ML IV SCH (11:15)
[2016-09-05 13:41] LABS: MYCOPLASMA PNUEMONIAE IGM 0.67 index (<=0.90)
--- NOTE | 2016-09-05 21:24 | GDS ---
[f rep st] DISCHARGE SUMMARY DISCHARGE DIAGNOSES: 1. Pulmonary infiltrates, possible pneumonia versus autoimmune disease. 2. Asthma. HISTORY: The patient is a 20-year-old female with asthma and IBS, presents with shortness of breath and cough for 4-6 weeks. Her initial chest x-ray and CT for PE were negative; however, a CT scan of the neck was obtained showing apical infiltrates concerning for atypical pneumonia. She was continued on ceftriaxone and azithromycin. Given the unusual nature of this pneumonia, Infectious Disease was consulted. Both infectious and noninfectious etiologies were considered. This may be viral , although her viral PCR was negative. Typical pathogens of community-acquired pneumonia are felt to be less likely. Autoimmune diagnoses were considered. She has been cleared by Infectious Disease for discharge, and we would like her to continue on azithromycin. Multiple studies are pending at discharge including mycoplasma antibodies, serum IgE level, hypersensitivity pneumonitis panel, ANCA profile. [place] antibody is pending. She may require a require repeat CT scan to ensure resolution of these infiltrates. She is HIV negative. Infectious Disease recommends discharging with a course of prednisone in addition to completing azithromycin. They will follow up closely as an outpatient and if autoimmune disease uncovered, they will refer her appropriately to Rheumatology or Pulmonary Medicine. This discharge was coordinated with Dr. Dyer. DISCHARGE MEDICATIONS: Please see computer record for full detailed list. 1. New medication: Prednisone 40 mg p.o. daily. Tapering over the next 15 days to off. 2. She will complete her azithromycin prescription as she has at home. DISCHARGE INSTRUCTIONS: Follow up with Dr. Dyer, Infectious Disease in 1 week. Greater than 30 minutes' time was spent arranging this discharge. Patient was seen and examined by me on the day of discharge. /[id number]/MODL MTDD
[2016-09-08 07:36] LABS: MISCELLANEOUS TEST See Comments
== END 2016-09-05 14:52 | disposition home or self-care (01) | DRG 194 ==
LOC: INTOOBSV 09-02 01:31 → F3E 09-02 02:39 → OBSVTOIN 09-03 15:22
PROVIDERS: ADMIT Internal Medicine; ATTEND Internal Medicine
DX: J18.9 Pneumonia, unspecified organism (principal); J45.901 Unspecified asthma with (acute) exacerbation; K58.9 Irritable bowel syndrome, unspecified
CPT/HCPCS: 83516-90; 83520-90; 86331-90; 86615-90; 86668-90; 86738-90; 96365; G0378; J0456; J0696; J1885; J2405; Q9967

== ENCOUNTER 2016-09-05 15:34 | Emergency (ER) | payer OTHER ==
[2016-09-05] MEDS ORDERED: HYDROCODONE/APAP 5/325 TAB PO ONE (16:01)
--- NOTE | 2016-09-05 16:07 | EDPHY ---
H & P Stated Complaint: Tripped/fell; large lac to R knee; able to bear weight HPI/ROS: CHIEF COMPLAINT: Fall, laceration HISTORY OF PRESENT ILLNESS: patient was walking up the steps to residence within the past 20 minutes when she slipped and fell. She landed with her right knee bent, striking a metal object. She sustained a laceration to the right knee. It is moderately painful. Difficulty walking due to pain. No difficulty straightening or flexing the knee. Worse with palpation weight- bearing. Some improvement rest. No radiating pain. No numbness, tingling or weakness. No complaints distal to the knee. Tetanus update as she was just discharged home from the hospital today being treated for pneumonia. No other associated complaints or modifying factors. TIME OF INJURY: 3:30 p.m. TETANUS STATUS: up-to-date REVIEW OF SYSTEMS: Ten systems reviewed and are negative unless otherwise noted in the HPI EXAMINATION General Appearance: Alert, no distress, tearful but consolable. Head: normocephalic, atraumatic Cardiovascular: Pulses normal throughout. Brisk cap refill Neurological: A&O, sensory symmetric, strength symmetric . Normal proprioception of the great toe. Skin: Warm and dry, no rash . 6 cm laceration along the anterior right proximal tibia. Subcutaneous tissue exposed. No compromise of the synovial fascia of the right knee. No foreign body. Extremities: Tenderness to palpation of the right knee at the proximal tibia. Range of motion is fully intact including extension and flexion. No instability. Laceration as noted above. Neurovascular intact distal to the knee pain laceration. Psychiatric: Mood and affect normal MDM: 4:02 p.m. fall with moderate/complex laceration to the right knee that does involve subcutaneous tissue. The fascia overlying the knee joint is visualized but not compromise. X-ray of the knee has been ordered. I have administered local anesthesia. We will irrigate copiously. Tetanus is up-to-date. 4:20 p.m. x-ray as interpreted by me reveals no air in the joint space. There is no foreign body. No acute fracture. Proceed with irrigation and closure. 5:04 p.m. wound has been closed with 5 Vicryl internal sutures and 7 horizontal mattresses on the dermal layer. Good approximation. Neurovascular intact post procedure. Wound care discussed. Discharged home stable condition. Return here in 7-10 days for suture removal. PROCEDURE: Laceration repair Consent: Verbal Location: Right combs/ proximal tibia Length of repair: 6 cm Complexity: complex Layer involvement: 2 layer Anesthesia: local, 1% lidocaine plain, 0.25% Marcaine with epinephrine. Total of 8 mL Irrigation: Extensive Debridement: none Procedure description: Following good anesthesia, the wound was copiously irrigated. Wound bed was explored and there is no foreign body noted. the synovial fascia to the right knee joint was visualized but not compromise. Wound borders were approximated well with good hemostasis. Tolerated well without complication. Suture/Staple material: 4-0 Ethilon, horizontal mattress x 7 With 5 simple interrupted, subcutaneous for-0 Vicryl sutures Wound care: Routine as discussed Suture/Staple removal: 7-10 Days SUTURE STAPLE REMOVAL: 7-10 days ED Precautions: Worsening pain. Erythema, edema, cyanosis, pallor, paresthesia or anesthesia. SUPERVISION: This patient was independently evaluated without direct examination by the attending physician. Case was discussed with attending physician. Source: Patient, Family Exam Limitations: No limitations - Personal History LMP (Females 10-55): Now Current Tetanus Diphtheria and Acellular Pertussis (TDAP): Yes Tetanus Vaccine Date: < 10 years - Medical/Surgical History Hx Asthma: Yes Hx Chronic Respiratory Disease: No Hx Diabetes: No Hx Cardiac Disease: No Hx Renal Disease: No Hx Cirrhosis: No Hx Alcoholism: No Hx HIV/AIDS: No Hx Splenectomy or Spleen Trauma: No Other PMH: HERNIA REPAIR, IBS, UPPER GI PROBLEMS, ASTHMA, ANXIETY, ADHD - Social History Smoking Status: Never smoked Constitutional: Initial Vital Signs Temperature (C) 98.1 F 09/05/16 15:40 Heart Rate 82 09/05/16 15:40 Respiratory Rate 18 09/05/16 15:40 Blood Pressure 120/73 09/05/16 15:40 O2 Sat (%) 96 09/05/16 15:40 O2 Delivery Mode Room Air Allergies/Adverse Reactions: No Known Allergies Allergy (Verified 09/05/16 15:44) Home Medications: Medication Instructions Recorded Albuterol [Proventil Inhaler HFA 1 - 2 puffs IH Q4H #1 mdi 08/03/16 (*)] Albuterol [Proventil Neb] 3 ml IH PRN PRN 08/03/16 Fluticasone/Vilanterol [Breo 1 each IH DAILY 08/03/16 Ellipta 100-25 Mcg INH] Sertraline HCl [Zoloft 50mg (*)] 50 mg PO DAILY 08/03/16 Montelukast Sodium [Singulair 10 10 mg PO DAILY@1800 09/01/16 mg (*)] ALPRAZolam [Xanax 1 MG (*)] 1 mg PO DAILY PRN 09/02/16 Amphet Asp and D/Amphet [Adderall 20 mg PO TID@08,12,15 09/02/16 20 mg (*)] Azithromycin [Zithromax] 250 mg PO DAILY 09/02/16 l-Norgest/E.estradiol-E.estrad 1 each PO DAILY 09/02/16 [Daysee 0.15-0.03-0.01 mg Tab] Acetaminophen/Codeine 300/30Mg 1 each PO Q6 PRN #15 tab 09/05/16 [Tylenol #3 (*)] Cephalexin [Keflex (*)] 500 mg PO TID #30 cap 09/05/16 predniSONE 40 mg PO DAILY #20 tablet 09/05/16 Medical Decision Making - Diagnostics Imaging Results: Imaging Impressions Knee X-Ray 09/05/16 16:01 Impression: Negative for fracture or joint effusion. Subcutaneous emphysema medially. - Data Points Medications Given: Discontinued Medications Hydrocodone Bitart/Acetaminophen ([place] 5/325) 1 tab PO EDNOW ONE Stop: 09/05/16 16:02 Last Admin: 09/05/16 16:08 Dose: 1 tab Departure - Departure Disposition: Home, Routine, Self-Care Clinical Impression: Laceration of knee, right, complicated Qualifiers: Encounter type: initial encounter Qualified Code(s): S81.011A - Laceration without foreign body, right knee, initial encounter Condition: Good Instructions: Care For Your Stitches (ED), Laceration (ED) Additional Instructions: daily wound care as discussed. Keflex prophylaxis as discussed. Crutches for the next 3-5 days. Then light activity for the remainder of the sutures. Follow-up. 7-10 days for suture removal. Return to ER for signs of infection as discussed Referrals: NONE *PRIMARY CARE P,. [Primary Care Provider] - As per Instructions Charles Pearce MD [Medical Doctor] - As per Instructions Stand Alone Forms: School Excuse Prescriptions: Acetaminophen/Codeine 300/30Mg [Tylenol #3 (*)] 1 each PO Q6 PRN #15 tab PRN Reason: Pain, Mild Cephalexin [Keflex (*)] 500 mg PO TID #30 cap
[2016-09-05 17:26] VITALS: BP 114/56; PULSE 61; RESP 16; TEMP 97.7; O2SAT 97
== END 2016-09-05 17:26 | disposition home or self-care (01) ==
PROC: 0HQKXZZ Repair Right Lower Leg Skin, External Approach (ICD-10-PCS; principal; 2016-09-05)
DX: S81.011A Laceration without foreign body, right knee, initial encounter (principal); J45.909 Unspecified asthma, uncomplicated; W01.198A Fall on same level from slipping, tripping and stumbling with subsequent striking against other object, initial encounter; Y92.009 Unspecified place in unspecified non-institutional (private) residence as the place of occurrence of the external cause; Y99.8 Other external cause status; Y93.01 Activity, walking, marching and hiking

== ENCOUNTER 2017-01-28 00:16 | Emergency (ER) | payer OTHER ==
[2017-01-28 00:22] VITALS: TEMP 98.4
[2017-01-28] MEDS ORDERED: NS 1,000 ML IV ONE (00:46)
--- NOTE | 2017-01-28 00:53 | CPEKG ---
Heart Rate: 111 RR Interval: 541 P-R Interval: 180 QRSD Interval: 90 QT Interval: 344 QTC Interval: 468 P [place]: 51 QRS [place]: 33 T Wave [place]: 38 EKG Severity - OTHERWISE NORMAL ECG - EKG Impression: SINUS TACHYCARDIA Electronically Signed By: Ynes Coronado 28-Jan-2017 07:52:27
[2017-01-28 00:55] LABS: % IMMATURE GRANULYOCYTES 0.5 % (0.0-1.1); ABSOLUTE IMMATURE GRANULOCYTES 0.04 10^3/uL (0.00-0.10); ADD DIFF? NO; ADD MORPH? NO; ADD SCAN? NO; ATYPICAL LYMPHOCYTE FLAG 0 (0-99); FRAGMENT RBC FLAG 0 (0-99); HEMATOCRIT 44.7 % (38.0-47.0); HEMOGLOBIN 15.1 g/dL (12.6-16.3); LEFT SHIFT FLG 0 (0-99); LIPEMIA HEMOLYSIS FLAG 90 (0-99); MEAN CELL HEMOGLOBIN 32.3 pg (27.9-34.1); MEAN CELL HEMOGLOBIN CONCENTR. 33.8 g/dL (32.4-36.7); MEAN CELL VOLUME 95.5 fL (81.5-99.8); PLATELET CLUMPS FLAG 10 (0-99); PLATELET COUNT 319 10^3/uL (150-400); RED BLOOD CELL COUNT 4.68 10^6/uL (4.18-5.33); RED CELL DISTRIBUTION WIDTH 13.9 % (11.5-15.2)
[2017-01-28 01:21] LABS: ANION GAP 19 mEq/L (8-16); CARBON DIOXIDE 25 mEq/l (22-31); CHLORIDE 104 mEq/L (97-110); CREATININE 0.7 mg/dL (0.6-1.0); GLOMERULAR FILTRATION RATE > 60; GLUCOSE 114 mg/dL (70-100); POTASSIUM 3.9 mEq/L (3.5-5.2); SODIUM 148 mEq/L (134-144)
[2017-01-28] MEDS ORDERED: MIDAZOLAM 2 MG/2 ML VIAL IVP ONE (01:23)
--- NOTE | 2017-01-28 01:49 | EDPHY ---
H & P Stated Complaint: CONSTIPATION WITH IBS Time Seen by Provider: 01/28/17 00:41 HPI/ROS: HPI The patient presents with constipation which has been present for the last 1 week which is constant and getting progressively worse. [facility], had a KUB and was diagnosed with constipation. She went home and attempted to take magnesium citrate, however was unsuccessful, she used an enema as well. She did not have any improvement in her constipation so she came into the emergency department. Her last normal bowel movement was 1 and half weeks ago. She has hard stools and occasionally bright red blood with these. She became upset tonight by the constipation and drink alcohol. She does have diffuse abdominal pain which she normally feels with constipation.. REVIEW OF SYSTEMS Constitutional: No fever, no chills. Eyes: No discharge. ENT: No sore throat. Cardiovascular: No chest pain, no palpitations. Respiratory: No cough, no shortness of breath. Gastrointestinal: No abdominal pain, no vomiting. Genitourinary: No hematuria. Musculoskeletal: No back pain. Skin: No rashes. Neurological: No headache. PMHx: IBS Soc Hx: College student, from [place] PHYSICAL General Appearance: Alert, no distress Eyes: Pupils equal and round no pallor or injection ENT, Mouth: Mucous membranes moist Respiratory: There are no retractions, lungs are clear to auscultation Cardiovascular: Regular rate and rhythm Gastrointestinal: Abdomen is soft and non-tender, no masses, bowel sounds normal Rectal exam demonstrates no stool in vault, no masses, no bleeding Neurological: A&O, moves all extremities Skin: Warm and dry, no rashes Musculoskeletal: Neck is supple non tender Extremities: symmetrical, full range of motion Psychiatric: Patient is oriented X 3, there is no agitation Source: Patient Exam Limitations: No limitations - Personal History LMP (Females 10-55): Now Tetanus Vaccine Date: < 10 years - Medical/Surgical History Hx Asthma: Yes Hx Chronic Respiratory Disease: No Hx Diabetes: No Hx Cardiac Disease: No Hx Renal Disease: No Hx Cirrhosis: No Hx Alcoholism: No Hx HIV/AIDS: No Hx Splenectomy or Spleen Trauma: No Other PMH: HERNIA REPAIR, IBS, UPPER GI PROBLEMS, ASTHMA, ANXIETY, ADHD - Social History Smoking Status: Never smoked Constitutional: Initial Vital Signs Temperature (C) 36.9 C 01/28/17 00:18 Heart Rate 136 H 01/28/17 00:18 Respiratory Rate 18 01/28/17 00:18 Blood Pressure 138/104 H 01/28/17 00:18 O2 Sat (%) 96 01/28/17 00:18 O2 Delivery Mode Room Air Allergies/Adverse Reactions: No Known Allergies Allergy (Verified 09/05/16 15:44) Home Medications: Medication Instructions Recorded Albuterol [Proventil Inhaler HFA 1 - 2 puffs IH Q4H #1 mdi 08/03/16 (*)] Albuterol [Proventil Neb] 3 ml IH PRN PRN 08/03/16 Fluticasone/Vilanterol [Breo 1 each IH DAILY 08/03/16 Ellipta 100-25 Mcg INH] ALPRAZolam [Xanax 1 MG (*)] 1 mg PO DAILY PRN 09/02/16 Amphet Asp and D/Amphet [Adderall 20 mg PO TID@08,12,15 09/02/16 20 mg (*)] l-Norgest/E.estradiol-E.estrad 1 each PO DAILY 09/02/16 [Daysee 0.15-0.03-0.01 mg Tab] Medical Decision Making Differential Diagnosis: This is a 21-year-old female who presents with constipation for the last 1 and half weeks. She has a history of IBS so she attributes her constipation to this. She had a KUB performed earlier today which showed that she had constipation. She has tried MiraLax, magnesium citrate, a Fleet's enema at home with no relief. On exam, she is anxious, tachycardic, tearful, has mild abdominal diffuse tenderness. His differential diagnosis includes constipation, intra-abdominal infection, anxiety attack. In the emergency department, patient was given an enema with no improvement in her constipation. Then given lactulose and magnesium citrate. She was observed for several hours and was able to have a bowel movement on her own and felt much better. His labs were checked and were unremarkable. She will be discharged home with instructions for bowel regimen, high-fiber diet. She is happy with this plan. - Data Points Laboratory Results: Laboratory Results 01/28/17 00:50 01/28/17 00:50 01/28/17 01/28/17 01/28/17 00:50 00:50 00:50 WBC 7.92 10^3/uL 10^3/uL (3.80-9.50) RBC 4.68 10^6/uL 10^6/uL (4.18-5.33) Hgb 15.1 g/dL g/dL (12.6-16.3) Hct 44.7 % % (38.0-47.0) MCV 95.5 fL fL (81.5-99.8) MCH 32.3 pg pg (27.9-34.1) MCHC 33.8 g/dL g/dL (32.4-36.7) RDW 13.9 % % (11.5-15.2) Plt Count 319 10^3/uL 10^3/uL (150-400) MPV 9.0 fL fL (8.7-11.7) Neut % (Auto) 59.0 % % (39.3-74.2) Lymph % (Auto) 29.5 % % (15.0-45.0) [place] % (Auto) 9.3 % % (4.5-13.0) Eos % (Auto) 0.8 % % (0.6-7.6) Baso % (Auto) 0.9 % % (0.3-1.7) Nucleat RBC Rel Count 0.0 % % (0.0-0.2) Absolute Neuts (auto) 4.67 10^3/uL 10^3/uL (1.70-6.50) Absolute Lymphs (auto) 2.34 10^3/uL 10^3/uL (1.00-3.00) Absolute Monos (auto) 0.74 10^3/uL 10^3/uL (0.30-0.80) Absolute Eos (auto) 0.06 10^3/uL 10^3/uL (0.03-0.40) Absolute Basos (auto) 0.07 10^3/uL 10^3/uL (0.02-0.10) Absolute Nucleated RBC 0.00 10^3/uL 10^3/uL (0-0.01) Immature Gran % 0.5 % % (0.0-1.1) Immature Gran # 0.04 10^3/uL 10^3/uL (0.00-0.10) Sodium 148 mEq/L H mEq/L (134-144) Potassium 3.9 mEq/L mEq/L (3.5-5.2) Chloride 104 mEq/L mEq/L (97-110) Carbon Dioxide 25 mEq/l mEq/l (22-31) Anion Gap 19 mEq/L H mEq/L (8-16) BUN 9 mg/dL mg/dL (7-23) Creatinine 0.7 mg/dL mg/dL (0.6-1.0) Estimated GFR > 60 Glucose 114 mg/dL H mg/dL (70-100) Calcium 10.0 mg/dL mg/dL (8.5-10.4) Beta HCG, Qual NEGATIVE Medications Given: Discontinued Medications Sodium Chloride (Ns) 1,000 mls @ 0 mls/hr IV ONCE ONE; Wide Open PRN Reason: Protocol Stop: 01/28/17 00:47 Last Admin: 01/28/17 00:47 Dose: 1,000 mls Lactulose (Cephulac) 40 gm PO EDNOW ONE Stop: 01/28/17 02:57 Last Admin: 01/28/17 03:24 Dose: 40 gm Magnesium Citrate (Magnesium Citrate) 300 ml PO ONCE ONE Stop: 01/28/17 02:57 Last Admin: 01/28/17 03:25 Dose: 1 btl Midazolam HCl (Versed) 1 mg IVP EDNOW ONE Stop: 01/28/17 01:24 Last Admin: 01/28/17 01:29 Dose: 1 mg Departure - Departure Disposition: Home, Routine, Self-Care Clinical Impression: Tachycardia Constipation Qualifiers: Constipation type: unspecified constipation type Qualified Code(s): K59.00 - Constipation, unspecified Condition: Good Instructions: Constipation (ED), High Fiber Diet (ED) Referrals: [facility] [Clinic] - As per Instructions
[2017-01-28] MEDS ORDERED: LACTULOSE 20 GM/30 ML UDCUP PO ONE (02:56)
[2017-01-28] MEDS ORDERED: MAGNESIUM CITRATE 300 ML BOTTLE PO ONE (02:56)
[2017-01-28 03:50] VITALS: RESP 16
[2017-01-28 06:34] VITALS: BP 124/68; PULSE 103; O2SAT 96
== END 2017-01-28 06:34 | disposition home or self-care (01) ==
DX: K59.00 Constipation, unspecified (principal); R00.0 Tachycardia, unspecified; J45.909 Unspecified asthma, uncomplicated; E86.9 Volume depletion, unspecified
CPT/HCPCS: 96374; J2250

== ENCOUNTER 2017-06-20 21:51 | Emergency (ER) | payer OTHER ==
[2017-06-20 22:00] VITALS: TEMP 98.4
[2017-06-20] MEDS ORDERED: NS 1,000 ML IV ONE (22:06)
--- NOTE | 2017-06-20 22:09 | EDPHY ---
H & P Smoking Status: Never smoked Time Seen by Provider: 06/20/17 21:51 HPI/ROS: CHIEF COMPLAINT: Anxiety HISTORY OF PRESENT ILLNESS: 21-year-old female presents to the emergency department by ambulance feeling extremely anxious. Patient states when she woke up this morning "I had the worse anxiety of my life". She has vomited multiple times. No diarrhea. She has a long history of depression and anxiety. Her psychiatrist in [place] where she is from recently started her on lorazepam. She denies any other substance abuse, specifically does not use marijuana. She does report in August she was hospitalized with bronchitis and was on a tapered dose of steroids for over 3 months. She states that has made her anxiety worse. Mild headache. She has felt depressed. She does not feel suicidal or ideation. She does not have a plan. She has never attempted suicide in the past. REVIEW OF SYSTEMS: Constitutional: No fever, no chills. Eyes: No double or blurry vision. ENT: No sore throat. Respiratory: No cough, no shortness of breath. Cardiac: No chest pain. Gastrointestinal: No abdominal pain, vomiting or diarrhea. Genitourinary: No dysuria. Musculoskeletal: No neck or back pain. Skin: No rashes. Neurological: No headache. (Katya Garcia) Past Medical/Surgical History: Obsessive-compulsive disorder, depression, anxiety, asthma (Katya Garcia) Social History: [employer] student from [place] (Katya Garcia) Physical Exam: General Appearance: Alert, tearful, extremely anxious. Eyes: Pupils equal and round. Extraocular motions are all intact. ENT: Mouth: Mucous membranes moist. Respiratory: No wheezing, rhonchi, or rales, lungs are clear to auscultation. Cardiovascular: Regular rate and rhythm. Tachycardic. Gastrointestinal: Abdomen is soft and nontender, no masses, no rebound or guarding, bowel sounds normal. Neurological: Alert and oriented x 3, cranial nerves II through XII grossly intact Skin: Warm and dry, no rashes. Musculoskeletal: Nontender to palpate along the cervical, thoracic or lumbar spine. Neck is supple. Extremities: Full range of motion and no peripheral edema. Psychiatric: Patient is oriented X 3, there is no agitation. (Katya Garcia) Constitutional: Initial Vital Signs Temperature (C) 36.9 C 06/20/17 21:55 Heart Rate 106 H 06/20/17 21:55 Respiratory Rate 20 06/20/17 21:55 Blood Pressure 154/110 H 06/20/17 21:55 O2 Sat (%) 94 06/20/17 21:55 O2 Delivery Mode Room Air Allergies/Adverse Reactions: Latex, Natural Rubber Allergy (Verified 06/20/17 21:57) Home Medications: Medication Instructions Recorded Albuterol [Proventil Inhaler HFA 1 - 2 puffs IH Q4H #1 mdi 08/03/16 (*)] Albuterol [Proventil Neb] 3 ml IH PRN PRN 08/03/16 Fluticasone/Vilanterol [Breo 1 each IH DAILY 08/03/16 Ellipta 100-25 Mcg INH] Amphet Asp and D/Amphet [Adderall 20 mg PO TID@08,12,15 09/02/16 20 mg (*)] l-Norgest/E.estradiol-E.estrad 1 each PO DAILY 09/02/16 [[place] 0.15-0.03-0.01 mg Tab] FLUoxetine 06/20/17 LORAZEPAM 06/20/17 Medical Decision Making ED Course/Re-evaluation: 21-year-old female presents to the emergency department feeling extremely anxious. The patient has a known history of anxiety. Laboratory studies were drawn. The patient had serum alcohol over 300. Patient did receive 1 mg of Ativan IV. She was observed. The patient was feeling much better. She would like to be discharged home. She was given referral for counseling center as well as CAPS program with [facility]. Patient does not feel suicidal homicidal. She feels comfortable being discharged home. She was encouraged to return to the emergency department if she had any change in symptoms or felt worse. (Katya Garcia) I did not see this patient while she was in the emergency department. However her care was discussed with the PA while the patient was in the department. I agree with treatment plan and management (Jamari Hankins) Differential Diagnosis: Depression including functional and major depression, situational depression, medication side effect, drugs and alcohol abuse. (Katya Garcia) - Data Points Laboratory Results: Laboratory Results 06/20/17 21:45 06/20/17 21:45 Medications Given: Discontinued Medications Sodium Chloride (Ns) 1,000 mls @ 0 mls/hr IV ONCE ONE PRN Reason: Wide Open Stop: 06/20/17 22:07 Last Admin: 06/20/17 22:15 Dose: 1,000 mls Lorazepam (Ativan Injection) 1 mg IVP EDNOW ONE Stop: 06/20/17 22:41 Last Admin: 06/20/17 23:11 Dose: 1 mg Departure - Departure Disposition: Home, Routine, Self-Care Clinical Impression: Anxiety Condition: Good Instructions: Anxiety (ED) Additional Instructions: You should not drink alcohol as this may increase her symptoms of anxiety. Return to the emergency department if you develop recurring symptoms of anxiety , if you developed vomiting, if you feel suicidal or homicidal, or if you feel worse in any way. CAPS program with [facility] [phone] Referrals: CAPS, [facility] [Other] - As per Instructions
[2017-06-20 22:21] LABS: PLATELET COUNT 282 10^3/uL (150-400)
[2017-06-20] MEDS ORDERED: LORazepam 2 MG/ML INJ IVP ONE (22:40)
[2017-06-20 23:59] VITALS: BP 129/94; PULSE 83; RESP 16; O2SAT 95
== END 2017-06-20 23:55 | disposition home or self-care (01) ==
LOC: EDUNIT#
DX: F41.9 Anxiety disorder, unspecified (principal); J45.909 Unspecified asthma, uncomplicated; Z91.040 Latex allergy status
CPT/HCPCS: 80305; 96374; G0480; J2060